=== PATIENT | female | born 1995 | race Caucasian/White ===

== ENCOUNTER 2023-12-01 23:50 | Inpatient (IN) | payer OTHER ==
[2023-12-02] MEDS: ELECTROLYTE-148 SOLN 1,000 ML IV SCH (02:20)
[2023-12-02] MEDS ORDERED: BUPIVACAINE HCL/PF 0.25% (2.5MG/ML) 10 ML VIAL ONE (02:34)
[2023-12-02] MEDS ORDERED: FENTANYL/BUPIVACAINE/NS/PF - PCEA - 50 ML DISP.SYRIN EP ONE (02:35)
[2023-12-02] MEDS ORDERED: NALOXONE HCL 0.4 MG/ML VIAL IVPUSH PRN (02:36)
[2023-12-02 02:53] LABS: BASO % 0.4 % (0-2.0); EOS % 0.3 % (0-4.5); HEMATOCRIT 38.9 % (32.4-45.2); HEMOGLOBIN 13.1 GM/dL (10.7-15.3); MCH 29.8 pg (25.7-33.7); MCHC 33.7 g/dl (32.0-36.0); MEAN CELL VOLUME 88.3 fl (80-96); MEAN PLT VOLUME 8.5 fl (7.5-11.1); MONO % 5.4 % (3.8-10.2); NEUT % 76.9 % (42.8-82.8); PLATELET COUNT 254 10^3/uL (134-434); RDW 14.9 % (11.6-15.6); WHITE BLOOD COUNT 13.8 K/mm3 (4.0-10.0)
[2023-12-02] MEDS: FENTANYL/BUPIVACAINE/NS/PF - PCEA - 50 ML DISP.SYRIN EP SCH (02:57)
[2023-12-02 02:58] LABS: INR 0.96 (0.83-1.09); PROTHROMBIN TIME (PATIENT) 10.9 SEC (9.7-13.0)
[2023-12-02 03:12] LABS: CALCIUM 9.1 mg/dL (8.5-10.1)
[2023-12-02 03:17] LABS: CREATININE 0.6 mg/dL (0.55-1.3)
[2023-12-02 03:40] LABS: SYPHILIS W/ RPR CONF NON-REACTIVE (NONREACTIVE)
[2023-12-02 04:09] LABS: HIV INTERPRETATION NEGATIVE (NEGATIVE)
[2023-12-02] MEDS: OXYTOCIN 20 UNITS in 0.9% NS 20 UNIT/1,000 ML INFUS.BAG IV SCH (05:37)
[2023-12-02] MEDS ORDERED: OXYTOCIN 20 UNITS in 0.9% NS 20 UNIT/1,000 ML INFUS.BAG IV ONE ×2 (05:40→06:45)
[2023-12-02] MEDS ORDERED: LIDOCAINE HCL 1% PRESERVATIVE FREE - 30ML VIAL ONE (05:43)
[2023-12-02 06:24] VITALS: BMI 29.4
[2023-12-02] MEDS ORDERED: BENZOCAINE 28 GM HEMORRHOIDAL OINTMENT TP PRN (06:51)
[2023-12-02] MEDS ORDERED: BISACODYL 10 MG SUPP.RECT RC PRN (06:51)
[2023-12-02] MEDS ORDERED: WITCH HAZEL 50% (TUCKS) 40 PAD/JAR PAD TP PRN (06:51)
[2023-12-02] MEDS ORDERED: METHYLERGONOVINE MALEATE 0.2 MG/1 ML AMP IM PRN (06:51)
[2023-12-02] MEDS ORDERED: ACETAMINOPHEN 325 MG TABLET (FP) PO PRN (06:51)
[2023-12-02] MEDS ORDERED: oxyCODONE HCL 5 MG TABLET PO PRN (06:51)
[2023-12-02] MEDS ORDERED: BENZOCAINE 20% 57 GM BOTTLE TP PRN (06:51)
[2023-12-02] MEDS ORDERED: IBUPROFEN 600 MG TABLET (FP) PO ONE (08:04)
[2023-12-02] MEDS: IBUPROFEN 600 MG TABLET (FP) PO PRN (08:05)
[2023-12-02 09:09] LABS: PHENCYCLIDINE,URINE NEGATIVE (NEGATIVE)
[2023-12-02 09:10] LABS: COCAINE, UR NEGATIVE (NEGATIVE); METHADONE, UR NEGATIVE (NEGATIVE); OPIATES, URI NEGATIVE (NEGATIVE); URINE AMPHETAMINES NEGATIVE (NEGATIVE); URINE BARBITURATES NEGATIVE (NEGATIVE); URINE BENZODIAZEPINES NEGATIVE (NEGATIVE)
[2023-12-02 14:03] VITALS: RESP 18
[2023-12-02] MEDS: SENNOSIDES/DOCUSATE COMBO (SENNA PLUS) TABLET (UD) PO PRN (20:00)
[2023-12-03 08:05] LABS: BASO % 0.3 % (0-2.0); EOS % 1.1 % (0-4.5); HEMATOCRIT 31.3 % (32.4-45.2); HEMOGLOBIN 10.6 GM/dL (10.7-15.3); LYMPH % 17.6 % (8-40); MCHC 33.8 g/dl (32.0-36.0); MEAN CELL VOLUME 88.8 fl (80-96); MEAN PLT VOLUME 8.6 fl (7.5-11.1); MONO % 9.9 % (3.8-10.2); NEUT % 71.1 % (42.8-82.8); PLATELET COUNT 209 10^3/uL (134-434); RBC 3.52 M/mm3 (3.60-5.2); RDW 15.3 % (11.6-15.6); WHITE BLOOD COUNT 10.7 K/mm3 (4.0-10.0)
[2023-12-03 21:57] VITALS: PULSE 83
[2023-12-04 09:44] VITALS: BP 112/67; TEMP 98
== END 2023-12-04 13:00 | disposition home or self-care (01) | DRG 560 ==
LOC: JDEL 23:50 → JLDR 12-02 01:05 → J3W 12-02 08:40
PROVIDERS: ADMIT Specialist; ATTEND Specialist
PROC: 10E0XZZ Delivery of Products of Conception, External Approach (ICD-10-PCS; principal; 2023-12-02)
PROC: 0HQ9XZZ Repair Perineum Skin, External Approach (ICD-10-PCS; 2023-12-02)
DX: O70.0 First degree perineal laceration during delivery (principal); Z3A.39 39 weeks gestation of pregnancy; Z37.0 Single live birth
CPT/HCPCS: 36415; 80048; 80307; 85025; 85610; 85730; 86780; 86803; 86850; 86900; 86901; 87389

== ENCOUNTER 2024-01-17 15:14 | Emergency (ER) | payer OTHER ==
[2024-01-17 15:24] VITALS: BMI 25.7
[2024-01-17] MEDS ORDERED: ACETAMINOPHEN INJECTION 100 ML IVPB ONE (16:58)
[2024-01-17] MEDS: ACETAMINOPHEN 1000 MG/100 ML BAG IVPB ONE (17:16)
[2024-01-17] MEDS: SODIUM CHLORIDE 0.9% 500 ML INFUS.BAG IV ONE ×3 (17:16→21:27)
[2024-01-17 17:19] LABS: HEMATOCRIT 39.5 % (32.4-45.2); HEMOGLOBIN 13.3 GM/dL (10.7-15.3); MCH 28.7 pg (25.7-33.7); MCHC 33.6 g/dl (32.0-36.0); MEAN CELL VOLUME 85.5 fl (80-96); MEAN PLT VOLUME 6.9 fl (7.5-11.1); PLATELET COUNT 254 10^3/uL (134-434); RBC 4.62 M/mm3 (3.60-5.2); RDW 14.4 % (11.6-15.6); WHITE BLOOD COUNT 9.8 K/mm3 (4.0-10.0)
[2024-01-17] MEDS: ACETAMINOPHEN 500 MG TABLET (FP) PO ONE (17:19)
[2024-01-17 17:25] LABS: EPI CELLS 10 /uL (0-25.1); HYALINE CASTS 3 /uL (0-3.1); PH,URINE 5.5 (5.0-8.0); URINE APPEARANCE CLEAR; URINE BACTERIA 332 /uL (0-1359); URINE BILIRUBIN NEGATIVE (NEGATIVE); URINE COLOR YELLOW; URINE GLUCOSE (UA) NEGATIVE (NEGATIVE); URINE KETONE 1+ (NEGATIVE); URINE LEUK ESTERASE 2+ (NEGATIVE); URINE NITRITE NEGATIVE (NEGATIVE); URINE PROTEIN NEGATIVE (NEGATIVE); URINE RBC 20 /uL (0-23.9); URINE WBC 219 /uL (0-25.8)
[2024-01-17 17:31] LABS: HCG,QUALITATIVE URINE Negative
[2024-01-17 17:38] LABS: CALCIUM 9.1 mg/dL (8.5-10.1)
[2024-01-17 17:39] LABS: ALBUMIN 4.1 g/dl (3.4-5.0); BLOOD UREA NITROGEN 17.9 mg/dL (7-18)
[2024-01-17 17:42] LABS: CREATININE 0.9 mg/dL (0.55-1.3)
[2024-01-17 17:43] LABS: BILIRUBIN,TOTAL 0.4 mg/dL (0.2-1)
[2024-01-17 17:44] LABS: TOT PROT 7.7 g/dl (6.4-8.2)
[2024-01-17] MEDS ORDERED: MIDAZOLAM HCL 2 MG/2 ML SINGLE DOSE VIAL ONE (18:35)
[2024-01-17] MEDS: MIDAZOLAM HCL 2 MG/2 ML SINGLE DOSE VIAL IVPUSH ONE (18:57)
[2024-01-17 20:11] LABS: BF GLUCOSE (CSF ONLY) 58 mg/dL (40-70)
[2024-01-17 21:43] LABS: CSF APPEARANCE CLEAR (CLEAR); CSF COLOR COLORLESS (COLORLESS); CSF WBC 1 mm3 (0-5)
[2024-01-17 22:29] VITALS: BP 111/67; PULSE 68; RESP 18; TEMP 98.3
[2024-01-21 08:10] LABS: LYME PCR CSF Negative (Negative)
== END 2024-01-17 22:44 | disposition home or self-care (01) ==
LOC: JERFT 15:14 → JER 15:14
PROC: 009U3ZX Drainage of Spinal Canal, Percutaneous Approach, Diagnostic (ICD-10-PCS; principal; 2024-01-17)
PROC: 3E033NZ Introduction of Analgesics, Hypnotics, Sedatives into Peripheral Vein, Percutaneous Approach (ICD-10-PCS; 2024-01-17)
PROC: 3E033GC Introduction of Other Therapeutic Substance into Peripheral Vein, Percutaneous Approach (ICD-10-PCS; 2024-01-17)
DX: R51.9 Headache, unspecified (principal); R50.9 Fever, unspecified; M79.10 Myalgia, unspecified site; R11.0 Nausea; Z20.822 Contact with and (suspected) exposure to COVID-19
CPT/HCPCS: 0241U-QW; 36415; 71046-TC-FY; 80053; 81003; 82945; 83605; 84157; 84439; 84443; 84481; 84703; 85027; 87040; 87070; 87086; 87205; 87476; 87529; 99284-25; J0131